=== PATIENT | female | born 1965 | race Caucasian/White ===

== ENCOUNTER 2025-04-21 12:53 | Outpatient (CLI) | payer OTHER, SELFPAY | END 2025-04-21 12:54 | disposition home or self-care (01) | LOC: INJ CL 12:56 | PROVIDERS: PCP Family Medicine; Visit Provider Family Medicine | DX: M54.16 Radiculopathy, lumbar region (principal); M51.360 Other intervertebral disc degeneration, lumbar region with discogenic back pain only | CPT/HCPCS: 64483; J1100; Q9966 ==